=== PATIENT | male | born 1990 | race Caucasian/White ===

== ENCOUNTER → 2016-06-24 | Outpatient (CLI) | payer MEDICARE ==
--- NOTE | 2016-06-24 22:05 | MR ---
EXAMINATION TYPE: MR lumbar spine wo con DATE OF EXAM: 06/24/2016 10:20 AM COMPARISON: NONE HISTORY: LBP, BLE radic x 1 year, no trauma CONTRAST: 0 mL intravenous MultiHance. TECHNIQUE: Multiplanar, multisequence images of the lumbar spine were acquired. FINDINGS: Disc heights are preserved. Disc hydration levels are normal. No significant disc bulge is evident. N o focal disc herniations are evident. No spinal canal stenosis or neural foraminal stenosis is presen t within the lumbar spine. Cord terminates at a normal T12-L1 level. Facets appear within normal limi ts. IMPRESSION: 1. Normal MRI lumbar spine
== END ==
LOC: RADMRIMAIN 08:54
PROVIDERS: ATTEND Anesthesiology Pain Medicine
DX: M54.16 Radiculopathy, lumbar region (principal)
CPT/HCPCS: 72148

== ENCOUNTER 2016-06-28 20:58 | Emergency (ER) | payer MEDICARE ==
[2016-06-28] MEDS ORDERED: DIPH,PERTUS(ACELL)TETVAC-LF 0.5 ML VIAL IM ONE (22:11)
--- NOTE | 2016-06-28 22:48 | ED ---
Wound/Laceration HPI - General Chief Complaint: Wound/Laceration Stated Complaint: rt hand lac Time Seen by Provider: 06/28/16 21:55 Source: patient, RN notes reviewed, old records reviewed Mode of arrival: ambulatory Limitations: no limitations - History of Present Illness Initial Comments: Patient is a 25-year-old male with chief complaint of a right hand laceration. Patient reports that he was taking down a fence and his hand hit the fence pole. He states that it was old and rested. Patient continues to lacerations over the right hand between his first and second digit. Patient denies any decreased range of motion. Denies any bony tenderness. Patient states that he is not up-to-date on his tetanus vaccination. - Related Data Home Medications Medication Instructions Recorded Confirmed Cyclobenzaprine [Flexeril] 10 mg PO TID PRN 06/28/16 06/28/16 Previous Rx's Medication Instructions Recorded Cephalexin [Keflex] 500 mg PO Q8HR #21 cap 06/28/16 Allergies Allergy/AdvReac Type Severity Reaction Status Date / Time Penicillins Allergy Unknown Verified 06/28/16 21:50 Sulfa (Sulfonamide Allergy Unknown Verified 06/28/16 21:50 Antibiotics) Review of Systems ROS Statement: Those systems with pertinent positive or pertinent negative responses have been documented in the HPI. ROS Other: All systems not noted in ROS Statement are negative. Past Medical History Past Medical History: No Reported History Additional Past Medical History / Comment(s): scoliosis bipolar History of Any Multi-Drug Resistant Organisms: None Reported Past Surgical History: Appendectomy Past Psychological History: ADD/ADHD, Bipolar Smoking Status: Current every day smoker Past Alcohol Use History: Occasional Past Drug Use History: None Reported General Exam - General Exam Comments Initial Comments: Pleasant 25-year-old male. No distress. Limitations: no limitations General appearance: alert, in no apparent distress Head exam: Present: atraumatic, normocephalic, normal inspection Eye exam: Present: normal appearance, PERRL, EOMI. Absent: scleral icterus, conjunctival injection, periorbital swelling ENT exam: Present: normal exam, mucous membranes moist Neck exam: Present: normal inspection. Absent: tenderness, meningismus, lymphadenopathy Respiratory exam: Present: normal lung sounds bilaterally. Absent: respiratory distress, wheezes, rales, rhonchi, stridor Cardiovascular Exam: Present: regular rate, normal rhythm, normal heart sounds. Absent: systolic murmur, diastolic murmur, rubs, gallop, clicks GI/Abdominal exam: Present: soft, normal bowel sounds. Absent: distended, tenderness, guarding, rebound, rigid Extremities exam: Present: normal inspection, full ROM, normal capillary refill. Absent: tenderness, pedal edema, joint swelling, calf tenderness Right Upper Arm exam: Present: normal inspection, full ROM Elbow exam: Present: normal inspection, full ROM Forearm Wrist exam: Present: normal inspection, full ROM Hand Wrist exam: Absent: normal inspection (2 1cm laceration) Neuro motor exam: Present: wrist extension intact, thumb opposition intact, thumb IP flexion intact, thumb adduction intact, fingers 2-5 abduction intact Back exam: Present: normal inspection Neurological exam: Present: alert, oriented X3, CN II-XII intact Psychiatric exam: Present: normal affect, normal mood Skin exam: Present: warm, dry, intact, normal color. Absent: rash Course Vital Signs 06/28/16 06/28/16 21:40 23:00 Temperature 100.1 F H 98.0 F Pulse Rate 84 78 Respiratory 20 18 Rate Blood Pressure 124/85 111/69 O2 Sat by Pulse 99 99 Oximetry Procedures - Laceration Laceration #1 Site: hand (right ) Size (cm): 2 Description: linear Depth: simple, single layer Anesthetic Used: benzocaine 0.25% Anesthesia Technique: local infiltration Amount (mls): 5 Pre-repair: wound explored, irrigated extensively Size of Sutures: 5-0 Number of Sutures: 3 Technique: simple, interrupted Patient Tolerated Procedure: well, no complications Medical Decision Making - Medical Decision Making 25-year-old male with chief complaint of laceration to the right hand between the first and second digit. Patient has 2 separate lacerations each measuring 1 cm. Patient given 3 sutures between the 2 lacerations. Patient given an updated tetanus shot. Patient advised to keep the wound clean. He will be started on Keflex as it was a dirty wound. Patient agrees the treatment plan will comply. Return parameters were discussed. Disposition Clinical Impression: Hand laceration Disposition: HOME SELF-CARE Condition: Good Instructions: Laceration (ED), Care For Your Stitches (ED) Additional Instructions: Please return to the emergency room in 5-7 days to have sutures removed. Please leave wound covered for the first 24-48 hours and then leave open to air after that time. Please use clean soap and water to clean the suture area to prevent scabbing over the top of your sutures. Please watch for any signs of infection which may include but not limited to increased pain, swelling, redness, fever or chills. Please return to the emergency room if any signs of infection do occur. Please return to the emergency room for any other concerns or complications. Complete antibiotic prescription. Prescriptions: Cephalexin [Keflex] 500 mg PO Q8HR #21 cap Referrals: Xuan Dietrich MD [Primary Care Provider] - 1-2 days Time of Disposition: 22:45
[2016-06-28 23:01] VITALS: BP 111/69; PULSE 78; RESP 18; TEMP 98
== END 2016-06-28 23:01 | disposition home or self-care (01) ==
LOC: EC 20:58
DX: S61.411A Laceration without foreign body of right hand, initial encounter (principal); F17.200 Nicotine dependence, unspecified, uncomplicated; Z23 Encounter for immunization; Z88.0 Allergy status to penicillin; Z88.2 Allergy status to sulfonamides; W22.09XA Striking against other stationary object, initial encounter
CPT/HCPCS: 12001; 90471; 90715; 99283

== ENCOUNTER 2017-04-22 15:34 | Emergency (ER) | payer MEDICARE, OTHER ==
[2017-04-22 15:41] VITALS: BP 122/74; PULSE 81; RESP 18; TEMP 98.2
--- NOTE | 2017-04-22 15:56 | ED ---
ENT HPI - General Chief complaint: Dental/Oral Stated complaint: Dental Pain Time Seen by Provider: 04/22/17 15:41 Source: patient Mode of arrival: ambulatory Limitations: no limitations - History of Present Illness Initial comments: This is a 26 year old male who presents to the emergency department with a chief complaint of dental pain on the left maxillary region. The pain has been going on for a week. He was evaluated by a dentist, but was unable to afford the procedure to pull the tooth that is causing his pain. He is going to be seen by a dentist on Sunday this week, but is unable to handle the pain anymore. The patient is here for management of his pain. He denies pain surrounding the affected tooth, fevers or chiills. - Related Data Previous Rx's Medication Instructions Recorded Acetaminophen-Codeine 300-30mg 1 tab PO Q4H PRN #20 tablet 04/22/17 [Tylenol #3] Clindamycin HCl 300 mg PO Q6HR #40 cap 04/22/17 Ibuprofen [Motrin] 600 mg PO Q8HR PRN #30 tab 04/22/17 Allergies Allergy/AdvReac Type Severity Reaction Status Date / Time Penicillins Allergy Unknown Verified 04/22/17 15:52 Sulfa (Sulfonamide Allergy Unknown Verified 04/22/17 15:52 Antibiotics) Review of Systems ROS Statement: Those systems with pertinent positive or pertinent negative responses have been documented in the HPI. ROS Other: All systems not noted in ROS Statement are negative. Past Medical History Past Medical History: No Reported History Additional Past Medical History / Comment(s): scoliosis bipolar History of Any Multi-Drug Resistant Organisms: None Reported Past Surgical History: Appendectomy Past Psychological History: ADD/ADHD, Bipolar Smoking Status: Current every day smoker Past Alcohol Use History: Occasional Past Drug Use History: None Reported General Exam Limitations: no limitations Head exam: Present: atraumatic, normocephalic, normal inspection Eye exam: Present: normal appearance, PERRL, EOMI. Absent: scleral icterus, conjunctival injection, periorbital swelling ENT exam: Present: other (The patient has several eroded teeth and dental caries. The 14-16th teeth are fractured and seems to be causing the patient the pain. There is no evidenc of abscess.) Neck exam: Present: normal inspection, full ROM. Absent: tenderness, meningismus, lymphadenopathy Respiratory exam: Present: normal lung sounds bilaterally. Absent: respiratory distress, wheezes, rales, rhonchi, stridor Cardiovascular Exam: Present: regular rate, normal rhythm, normal heart sounds. Absent: systolic murmur, diastolic murmur, rubs, gallop, clicks Course Vital Signs 04/22/17 15:39 Temperature 98.2 F Pulse Rate 81 Respiratory 18 Rate Blood Pressure 122/74 O2 Sat by Pulse 98 Oximetry Medical Decision Making - Medical Decision Making The 26 year old patient presented to the ED with dental pain. Physical exam revealed several eroded teeth with 14-16 revealing fractures. The patient was diagnosed clinically with dental pain, dental caries and dental fractures. The findings were discussed with the patient. He was instructed to follow-up with a dentist for further evaluation and management. He may take Motrin as needed for the pain. Disposition Clinical Impression: Toothache, Pain due to dental caries, Dental caries, Fractured tooth Disposition: HOME SELF-CARE Condition: Stable Instructions: Dental Caries (ED), Toothache (ED) Additional Instructions: Please return to the emergency department if experiencing new or worsening symptoms. Prescriptions: Acetaminophen-Codeine 300-30mg [Tylenol #3] 1 tab PO Q4H PRN #20 tablet PRN Reason: pain Clindamycin HCl 300 mg PO Q6HR #40 cap Ibuprofen [Motrin] 600 mg PO Q8HR PRN #30 tab PRN Reason: Pain Referrals: Xuan Dietrich MD [Primary Care Provider] - 1-2 days Time of Disposition: 15:57
== END 2017-04-22 16:16 | disposition home or self-care (01) ==
LOC: EC 15:34
DX: S02.5XXA Fracture of tooth (traumatic), initial encounter for closed fracture (principal); K02.9 Dental caries, unspecified; F17.200 Nicotine dependence, unspecified, uncomplicated; Z88.0 Allergy status to penicillin; Z88.2 Allergy status to sulfonamides
CPT/HCPCS: 99282

== ENCOUNTER 2017-08-15 19:30 | Emergency (ER) | payer MEDICARE, OTHER ==
[2017-08-15 19:58] VITALS: RESP 18
[2017-08-15] MEDS ORDERED: PROPARACAINE 0.5% OPHTH DROPS 15 ML BTL LEFT EYE STA (20:13)
--- NOTE | 2017-08-15 20:15 | ED ---
General Adult HPI - General Chief complaint: Eye Problems Stated complaint: FB left eye Time Seen by Provider: 08/15/17 20:06 Source: patient, RN notes reviewed Mode of arrival: ambulatory Limitations: no limitations - History of Present Illness Initial comments: 26-year-old male presents to the emergency department for a chief complaint of left eye irritation. Patient was working with hay when he felt like he got something in his eye. Patient flushed his eye thoroughly at home. He tried to use a Kleenex to wipe out any thing that's in his eye. Patient states the pain is still there. Patient states things seem blurry because his eye is watering. Patient denies pain with movement of the eye. Patient denies pain behind the eye. Patient denies any other visual changes.Patient has no other complaints at this time including shortness of breath, chest pain, abdominal pain, nausea or vomiting, headache. - Related Data Previous Rx's Medication Instructions Recorded Acetaminophen-Codeine 300-30mg 1 tab PO Q4H PRN #20 tablet 04/22/17 [Tylenol #3] Clindamycin HCl 300 mg PO Q6HR #40 cap 04/22/17 Ibuprofen [Motrin] 600 mg PO Q8HR PRN #30 tab 04/22/17 Erythromycin Ophth Oint [Romycin 1 applic LEFT EYE QID 5 Days gm 08/15/17 Ophth Oint] Allergies Allergy/AdvReac Type Severity Reaction Status Date / Time Penicillins Allergy Unknown Verified 04/22/17 15:52 Sulfa (Sulfonamide Allergy Unknown Verified 04/22/17 15:52 Antibiotics) Review of Systems ROS Statement: Those systems with pertinent positive or pertinent negative responses have been documented in the HPI. ROS Other: All systems not noted in ROS Statement are negative. Past Medical History Past Medical History: No Reported History Additional Past Medical History / Comment(s): scoliosis bipolar History of Any Multi-Drug Resistant Organisms: None Reported Past Surgical History: Appendectomy Past Psychological History: ADD/ADHD, Bipolar Smoking Status: Current every day smoker Past Alcohol Use History: Occasional Past Drug Use History: None Reported General Exam Limitations: no limitations General appearance: alert, in no apparent distress Head exam: Present: atraumatic, normocephalic, normal inspection Eye exam: Present: PERRL, EOMI, conjunctival injection (slight erythema of the left eye. serous drainage.). Absent: scleral icterus, nystagmus, periorbital swelling, periorbital tenderness Pupils: Present: normal accommodation, other (Wood's lamp and fluorescein stain show corneal abrasions at 2:00 and 10:00 in the left eye. Negative siedel sign. Both lids were flipped and no foreign bodies in the left eye) ENT exam: Present: normal exam, normal oropharynx, mucous membranes moist, TM's normal bilaterally, normal external ear exam Respiratory exam: Present: normal lung sounds bilaterally. Absent: respiratory distress, wheezes, rales, rhonchi, stridor Cardiovascular Exam: Present: regular rate, normal rhythm, normal heart sounds. Absent: systolic murmur, diastolic murmur, rubs, gallop, clicks Course Vital Signs 08/15/17 19:56 Temperature 97.2 F L Pulse Rate 69 Respiratory 18 Rate Blood Pressure 123/65 O2 Sat by Pulse 98 Oximetry Medical Decision Making - Medical Decision Making 26-year-old male says to the emergency department for chief complaint of corneal abrasion earlier today. Patient thinks he got pain in his eye and then used a Kleenex to get it out and thinks he scratched it. Patient does have somewhat decreased visual acuity in the left eye but states it is blurry because his eye is watering. Patient denies any other visual changes or loss of vision. On exam, no foreign bodies found in the eye. Eye was numbed with proparacaine. Wood's lamp and fluorescein stain was used which demonstrated corneal abrasions at about 2:00 and 10:00 in the left eye. Negative Shar sign. Proparacaine immediately helped his eye to feel better. Patient was given erythromycin ointment. He will use that for 5 days. He will return if he has any worsening symptoms or changes in vision. He will follow up with primary care in 1-2 days. He was also given the number to ophthalmology if needed. Disposition Clinical Impression: Corneal abrasion, left Disposition: HOME SELF-CARE Condition: Good Instructions: Corneal Abrasion (ED) Additional Instructions: Please use antibiotic ointment as directed in the left eye. Please return to the emergency department if you have any worsening symptoms including pain or visual changes. Follow-up with primary care in 1-2 days. If you need to, you can follow up with ophthalmology as well. Prescriptions: Erythromycin Ophth Oint [Romycin Ophth Oint] 1 applic LEFT EYE QID 5 Days gm Is patient prescribed a controlled substance at d/c from ED?: No Referrals: Xuan Dietrich MD [Primary Care Provider] - 1-2 days Tod Radford MD [STAFF PHYSICIAN] - 1-2 days Time of Disposition: 21:02
[2017-08-15 21:29] VITALS: BP 116/52; PULSE 74; TEMP 97.8
== END 2017-08-15 21:28 | disposition home or self-care (01) ==
LOC: EC 19:30
DX: S05.02XA Injury of conjunctiva and corneal abrasion without foreign body, left eye, initial encounter (principal); F17.200 Nicotine dependence, unspecified, uncomplicated; Z88.0 Allergy status to penicillin; Z88.2 Allergy status to sulfonamides; X58.XXXA Exposure to other specified factors, initial encounter
CPT/HCPCS: 99283

== ENCOUNTER 2018-10-15 22:48 | Emergency (ER) | payer MEDICARE, OTHER ==
[2018-10-15 22:57] VITALS: BP 125/76; PULSE 81; RESP 16; TEMP 98.1
[2018-10-15] MEDS ORDERED: KETOROLAC 60 MG/2 ML VIAL IM STA (23:16)
--- NOTE | 2018-10-15 23:21 | ED ---
ENT HPI - General Chief complaint: Dental/Oral Stated complaint: Dental Pain Time Seen by Provider: 10/15/18 22:59 Source: patient Mode of arrival: ambulatory Limitations: no limitations - History of Present Illness Initial comments: Patient is a 27-year-old male presenting to the emergency Department with complaints of dental pain 3 days. Patient states he has a fracture of his tooth on the lower left side and he knows he needs to be removed however he lost his dental insurance 2 months ago. Patient states his pain has been on and off for the last couple months but last 3 days has increased. Patient states he has pain with chewing. Patient denies any fever, chills. Patient has no other pertinent past medical history. No other complaints at this time. - Related Data Previous Rx's Medication Instructions Recorded Acetaminophen-Codeine 300-30mg 1 tab PO Q4H PRN #20 tablet 04/22/17 [Tylenol #3] Clindamycin HCl 300 mg PO Q6HR #40 cap 04/22/17 Ibuprofen [Motrin] 600 mg PO Q8HR PRN #30 tab 04/22/17 Erythromycin Ophth Oint [Romycin 1 applic LEFT EYE QID 5 Days gm 08/15/17 Ophth Oint] Clindamycin HCl 300 mg PO Q8H 7 Days #28 cap 10/15/18 Ketorolac [Toradol] 10 mg PO Q8HR #10 tab 10/15/18 Allergies Allergy/AdvReac Type Severity Reaction Status Date / Time Penicillins Allergy Unknown Verified 10/15/18 22:57 Sulfa (Sulfonamide Allergy Unknown Verified 10/15/18 22:57 Antibiotics) Review of Systems ROS Statement: Those systems with pertinent positive or pertinent negative responses have been documented in the HPI. ROS Other: All systems not noted in ROS Statement are negative. Past Medical History Past Medical History: No Reported History Additional Past Medical History / Comment(s): scoliosis bipolar History of Any Multi-Drug Resistant Organisms: None Reported Past Surgical History: Appendectomy Past Psychological History: ADD/ADHD, Bipolar Smoking Status: Current every day smoker Past Alcohol Use History: Occasional Past Drug Use History: None Reported General Exam - General Exam Comments Initial Comments: GENERAL: Well-appearing, well-nourished and in no acute distress. HEAD: Atraumatic, normocephalic. EYES: Pupils equal round and reactive to light, extraocular movements intact, sclera anicteric, conjunctiva are normal. ENT: TMs normal, nares patent, oropharynx clear without exudates. Moist mucous membranes. Patient has multiple tooth decay days. Patient has pain with palpation on tooth #18. There is no signs of abscess on the gumlines. NECK: Normal range of motion, supple without lymphadenopathy or JVD. LUNGS: Breath sounds clear to auscultation bilaterally and equal. No wheezes rales or rhonchi. HEART: Regular rate and rhythm without murmurs, rubs or gallops. ABDOMEN: Soft, nontender, normoactive bowel sounds. No guarding, no rebound. No masses appreciated. : Deferred EXTREMITIES: Normal range of motion, no pitting or edema. No clubbing or cyanosis. NEUROLOGICAL: Cranial nerves II through XII grossly intact. Normal speech, normal gait. PSYCH: Normal mood, normal affect. SKIN: Warm, Dry, normal turgor, no rashes or lesions noted. Limitations: no limitations Course Vital Signs 10/15/18 22:54 Temperature 98.1 F Pulse Rate 81 Respiratory 16 Rate Blood Pressure 125/76 O2 Sat by Pulse 99 Oximetry Medical Decision Making - Medical Decision Making Patient is a 27-year-old male presenting with dental pain 3 days. Patient has multiple tooth decay's. Patient has pain with palpation of tooth #18 in the lower left side. Patient states he is supposed to have a tooth pulled recently lost dental insurance. On exam there are no signs of an abscess. Patient will be started on clindamycin. Patient will also be given Toradol for pain relief. Patient will follow up with dentist YARED. Patient is stable for discharge. Patient is in agreement with this plan of care. Return parameters were discussed with the patient he verbalizes understanding. Case discussed with Dr. Harmon. Disposition Clinical Impression: Dental caries, Toothache, Dental abscess Disposition: HOME SELF-CARE Condition: Stable Instructions (If sedation given, give patient instructions): Dental Caries (ED), Toothache (ED) Additional Instructions: Please return to the Emergency Department if symptoms worsen or any other concerns. Follow-up with dentist for further management. Prescriptions: Clindamycin HCl 300 mg PO Q8H 7 Days #28 cap Ketorolac [Toradol] 10 mg PO Q8HR #10 tab Is patient prescribed a controlled substance at d/c from ED?: No Referrals: Petr Dietrich MD [Primary Care Provider] - 1-2 days
== END 2018-10-15 23:35 | disposition home or self-care (01) ==
LOC: EC 22:48
DX: K04.7 Periapical abscess without sinus (principal); K02.9 Dental caries, unspecified; Z88.0 Allergy status to penicillin; Z88.2 Allergy status to sulfonamides; F17.200 Nicotine dependence, unspecified, uncomplicated
CPT/HCPCS: 99282; 96372; J1885

== ENCOUNTER 2021-01-10 10:00 | Emergency (ER) | payer MEDICARE ==
[2021-01-10 11:03] VITALS: BP 122/70; PULSE 82; RESP 18; TEMP 98.2
--- NOTE | 2021-01-10 12:40 | ED ---
URI HPI - General Chief Complaint: Upper Respiratory Infection Stated Complaint: congestion Time Seen by Provider: 01/10/21 11:30 Source: patient, family Mode of arrival: ambulatory Limitations: no limitations - History of Present Illness Initial Comments: Patient is a 30-year-old male presenting to the emergency Department with complaints of sinus congestion, pressure over the past 1-2 weeks. He denies any fevers or chills, some mild ear pain and pressure. He is having a lot of sinus drainage with color changes. He denies any chest pain or shortness of breath, only mild cough in the morning, some postnasal drainage. Denies any abdominal pain, no nausea or vomiting. He has no further complaints at this time. Denies any recent sick exposures. His vital signs are stable upon arrival. - Related Data Previous Rx's Medication Instructions Recorded Acetaminophen-Codeine 300-30mg 1 tab PO Q4H PRN #20 tablet 04/22/17 [Tylenol #3] Clindamycin HCl 300 mg PO Q6HR #40 cap 04/22/17 Ibuprofen [Motrin] 600 mg PO Q8HR PRN #30 tab 04/22/17 Erythromycin Ophth Oint [Romycin 1 applic LEFT EYE QID 5 Days gm 08/15/17 Ophth Oint] Clindamycin HCl 300 mg PO Q8H 7 Days #28 cap 10/15/18 Ketorolac [Toradol] 10 mg PO Q8HR #10 tab 10/15/18 Doxycycline Monohydrate [Monodox] 100 mg PO BID 7 Days #14 cap 01/10/21 Allergies Allergy/AdvReac Type Severity Reaction Status Date / Time Penicillins Allergy Unknown Verified 01/10/21 11:02 Sulfa (Sulfonamide Allergy Unknown Verified 01/10/21 11:02 Antibiotics) Review of Systems ROS Statement: Those systems with pertinent positive or pertinent negative responses have been documented in the HPI. ROS Other: All systems not noted in ROS Statement are negative. Past Medical History Past Medical History: No Reported History Additional Past Medical History / Comment(s): scoliosis bipolar History of Any Multi-Drug Resistant Organisms: None Reported Past Surgical History: Appendectomy Past Psychological History: ADD/ADHD, Bipolar Smoking Status: Current every day smoker Past Alcohol Use History: Occasional Past Drug Use History: None Reported General Exam - General Exam Comments Initial Comments: GENERAL: Patient is well-developed and well-nourished. Patient is nontoxic and in no acute distress. HEAD: Atraumatic, normocephalic. EYES: Pupils equal round and reactive to light, extraocular movements intact, sclera anicteric, conjunctiva are normal. Eyelids were unremarkable. ENT: TMs normal, nares patent, oropharynx clear without exudates. Moist mucous membranes. Positive bilateral frontal sinus and pain with palpation. NECK: Normal range of motion, supple without lymphadenopathy or JVD. LUNGS: Unlabored respirations. Breath sounds clear to auscultation bilaterally and equal. No wheezes rales or rhonchi. HEART: Regular rate and rhythm without murmurs, rubs or gallops. ABDOMEN: Soft, nontender, normoactive bowel sounds. No guarding, no rebound. No masses appreciated. MUSCULOSKELETAL: Normal extremities with adequate strength and normal range of motion, no pitting or edema. No clubbing or cyanosis. NEUROLOGICAL: Patient is alert and oriented x 3. SKIN: Warm, Dry, normal turgor, no rashes or lesions noted. Limitations: no limitations Course Vital Signs 01/10/21 11:00 Temperature 98.2 F Pulse Rate 82 Respiratory 18 Rate Blood Pressure 122/70 O2 Sat by Pulse 98 Oximetry Medical Decision Making - Medical Decision Making Patient is a 30-year-old male here with sinus pain and congestion for the past 1-2 weeks. Been trying [id number] medications without improvement. His vitals are stable exam showing findings consistent with sinusitis. The test is negative. I will prescribe him doxycycline for sinus infection. He is agreeable with this plan he is stable for discharge. - Lab Data Lab Results 01/10/21 Range/Units 11:18 Coronavirus (PCR) Not Detected (Not Detectd) Disposition Clinical Impression: Acute sinus infection, Sinusitis Disposition: HOME SELF-CARE Condition: Stable Instructions (If sedation given, give patient instructions): Sinusitis (ED) Additional Instructions: Please return to the Emergency Department if symptoms worsen or any other concerns. Take antibiotics as prescribed. May take Tylenol Motrin for any discomfort. Follow-up with your family doctor. Prescriptions: Doxycycline Monohydrate [Monodox] 100 mg PO BID 7 Days #14 cap Is patient prescribed a controlled substance at d/c from ED?: No Referrals: Xuan Dietrich MD [Primary Care Provider] - 1-2 days Time of Disposition: 12:40
== END 2021-01-10 12:46 | disposition home or self-care (01) ==
LOC: EC 10:00
DX: J01.90 Acute sinusitis, unspecified (principal); F31.9 Bipolar disorder, unspecified; M41.9 Scoliosis, unspecified; F90.9 Attention-deficit hyperactivity disorder, unspecified type; F17.200 Nicotine dependence, unspecified, uncomplicated; Z72.89 Other problems related to lifestyle
CPT/HCPCS: 87635; 99283

== ENCOUNTER 2021-12-25 23:00 | Emergency (ER) | payer MEDICARE, OTHER ==
[2021-12-25] MEDS ORDERED: SODIUM CHLORIDE 0.9% 1,000 ML IV STA (23:07)
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
[2021-12-25 23:37] LABS: Basophils # (A) 0.1 k/uL (0-0.2); Basophils % (A) 1 %; Eosinophils # (A) 0.1 k/uL (0-0.7); Eosinophils % (A) 1 %; HCT 45.1 % (39.0-53.0); HGB 15.6 gm/dL (13.0-17.5); Lymphocytes # (A) 2.9 k/uL (1.0-4.8); Lymphocytes % (A) 28 %; MCH 29.9 pg (25.0-35.0); MCHC 34.7 g/dL (31.0-37.0); Mean Platelet Volume 8.8; Monocytes # (A) 0.5 k/uL (0-1.0); Monocytes % (A) 5 %; Neutrophils # (A) 6.5 k/uL (1.3-7.7); Neutrophils % (A) 63 %; Platelet Count 169 k/uL (150-450); RBC 5.24 m/uL (4.30-5.90); RDW 13.6 % (11.5-15.5); WBC 10.2 k/uL (3.8-10.6)
[2021-12-25 23:45] LABS: Partial Thromboplastin Time 24.7 sec (22.0-30.0)
[2021-12-25 23:48] LABS: ALT 19 U/L (4-49); AST 28 U/L (17-59); African American GFR (CKD) >90 (>60 ml/min/1.73 sqM); Albumin 4.9 g/dL (3.5-5.0); Alcohol <10 mg/dL; Alkaline Phosphatase 51 U/L (38-126); Anion Gap 12 mmol/L; Blood Urea Nitrogen 23 mg/dL (9-20); Calcium 9.4 mg/dL (8.4-10.2); Carbon Dioxide 27 mmol/L (22-30); Chloride 100 mmol/L (98-107); Glucose 92 mg/dL (74-99); Non-African American GFR(CKD) >90 (>60 ml/min/1.73 sqM); Sodium 139 mmol/L (137-145); Total Bilirubin 0.4 mg/dL (0.2-1.3); Total Protein 6.9 g/dL (6.3-8.2)
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
[2021-12-26 00:26] LABS: Amphetamine Screen,Urine Not Detected (NotDetected); Barbiturate Screen,Urine Not Detected (NotDetected); Benzodiazepines Screen,Urine Not Detected (NotDetected); Cocaine Screen,Urine Not Detected (NotDetected); Methadone Screen, Urine Not Detected (NotDetected); Opiate Screen,Urine Not Detected (NotDetected); Oxycodone Screen, Urine Not Detected (NotDetected); Phencyclidine Screen,Urine Not Detected (NotDetected); Tricyclic Antidepressant,Urine Not Detected (NotDetected); Urn Cannabinoid Scrn Not Detected (NotDetected)
[2021-12-26] MEDS ORDERED: MORPHINE SULFATE 4 MG/ML SYRINGE IVP STA (00:36)
[2021-12-26] MEDS ORDERED: KETOROLAC 15 MG/ML 1 ML VIAL IVP STA (00:36)
[2021-12-26] MEDS ORDERED: IBUPROFEN 600 MG STARTER PACK 4 TAB BTL PO STA (00:57)
[2021-12-26] MEDS ORDERED: traMADol 50 MG STARTER PACK 3 TAB BTL PO STA (00:57)
[2021-12-26 01:14] VITALS: BP 110/78; PULSE 70; RESP 16; TEMP 98
== END 2021-12-26 01:07 | disposition home or self-care (01) ==
LOC: EC 23:00
DX: S92.401A Displaced unspecified fracture of right great toe, initial encounter for closed fracture (principal); S00.03XA Contusion of scalp, initial encounter; F17.200 Nicotine dependence, unspecified, uncomplicated; F90.9 Attention-deficit hyperactivity disorder, unspecified type; Z88.0 Allergy status to penicillin; Z88.2 Allergy status to sulfonamides; V86.56XA Driver of dirt bike or motor/cross bike injured in nontraffic accident, initial encounter
CPT/HCPCS: 36415; 93005; 86900; 86901; 80053; 84484; 85025; 85610; 85730; 86850; 80306; 72170; 73630; 71045; 99284; 96374; 96375; 96361; G0480; J1885; 80320

== ENCOUNTER 2021-12-28 10:32 | Emergency (ER) | payer MEDICARE, OTHER ==
[2021-12-28 10:36] VITALS: BP 114/77; PULSE 76; RESP 16; TEMP 98
[2021-12-28] MEDS ORDERED: IBUPROFEN 800 MG TAB PO STA (10:47)
[2021-12-28] MEDS ORDERED: traMADol 50 MG TAB PO STA (10:47)
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
[2021-12-28] MEDS ORDERED: IBUPROFEN 600 MG STARTER PACK 4 TAB BTL PO STA (10:59)
[2021-12-28] MEDS ORDERED: traMADol 50 MG STARTER PACK 3 TAB BTL PO STA (10:59)
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
== END 2021-12-28 12:01 | disposition home or self-care (01) ==
LOC: EC 10:32
DX: M25.562 Pain in left knee (principal); F17.200 Nicotine dependence, unspecified, uncomplicated; Z88.0 Allergy status to penicillin; Z88.6 Allergy status to analgesic agent
CPT/HCPCS: 99283

== ENCOUNTER 2022-03-27 21:49 | Emergency (ER) | payer MEDICARE, OTHER ==
[2022-03-27 22:17] VITALS: BP 122/72; PULSE 79; RESP 16; TEMP 97.8
[2022-03-27] MEDS ORDERED: valACYclovir HCL 1,000 MG TABLET PO STA (22:21)
--- NOTE | 2022-03-27 22:22 | ED ---
General Adult HPI - General Stated complaint: Allergic Reaction, Blisters in mouth Time Seen by Provider: 03/27/22 22:22 Source: patient, RN notes reviewed Mode of arrival: ambulatory Limitations: no limitations - History of Present Illness Initial comments: 31-year-old male presents emergency Department chief complaint of sores in his mouth. Patient states he had recent multiple teeth extraction upper and lower. Patient states he started clindamycin but states the sores that are painful started prior to that. Patient denies any difficulty swallowing. He states he's had cultures the past he states his physical the medical floor. Patient offers no other complaints. Denies fevers denies chills. - Related Data Previous Rx's Medication Instructions Recorded Acetaminophen-Codeine 300-30mg 1 tab PO Q4H PRN #20 tablet 04/22/17 [Tylenol #3] Ibuprofen [Motrin] 600 mg PO Q8HR PRN #30 tab 04/22/17 clindamycin HCL [Clindamycin HCl] 300 mg PO Q6HR #40 cap 04/22/17 Erythromycin Ophth Oint [Romycin 1 applic LEFT EYE QID 5 Days gm 08/15/17 Ophth Oint] Ketorolac [Toradol] 10 mg PO Q8HR #10 tab 10/15/18 clindamycin HCL [Clindamycin HCl] 300 mg PO Q8H 7 Days #28 cap 10/15/18 Doxycycline Monohydrate [Monodox] 100 mg PO BID 7 Days #14 cap 01/10/21 Doxycycline Hyclate 100 mg PO BID 7 Days #14 tab 12/28/21 Ibuprofen 800 mg PO Q8H PRN #20 tab 12/28/21 valACYclovir HCL [Valtrex] 1,000 mg PO DAILY #7 tablet 03/27/22 Allergies Allergy/AdvReac Type Severity Reaction Status Date / Time Penicillins Allergy Unknown Verified 03/27/22 22:11 Sulfa (Sulfonamide Allergy Unknown Verified 03/27/22 22:11 Antibiotics) Review of Systems ROS Statement: Those systems with pertinent positive or pertinent negative responses have been documented in the HPI. ROS Other: All systems not noted in ROS Statement are negative. Past Medical History Past Medical History: No Reported History Additional Past Medical History / Comment(s): scoliosis bipolar History of Any Multi-Drug Resistant Organisms: None Reported Past Surgical History: Appendectomy Past Psychological History: ADD/ADHD, Bipolar, PTSD Smoking Status: Current every day smoker Past Alcohol Use History: Occasional Past Drug Use History: None Reported General Exam General appearance: alert, in no apparent distress Head exam: Present: atraumatic, normocephalic, normal inspection Eye exam: Present: normal appearance, PERRL, EOMI. Absent: scleral icterus, conjunctival injection, periorbital swelling ENT exam: Present: mucous membranes moist. Absent: normal exam, normal oropharynx (Recent dental extraction with sutures in place no active bleeding there is vesicular erythematous sores on it lip, inner mucosa) Neck exam: Present: normal inspection, full ROM. Absent: tenderness, meningismus, lymphadenopathy Respiratory exam: Present: normal lung sounds bilaterally. Absent: respiratory distress, wheezes, rales, rhonchi, stridor Cardiovascular Exam: Present: regular rate, normal rhythm, normal heart sounds. Absent: systolic murmur, diastolic murmur, rubs, gallop, clicks Course Vital Signs 03/27/22 22:11 Temperature 97.8 F Pulse Rate 79 Respiratory 16 Rate Blood Pressure 122/72 O2 Sat by Pulse 96 Oximetry Medical Decision Making - Medical Decision Making Was pt. sent in by a medical professional or institution (, PA, PROCESS CONTROL TECHNICIAN, urgent care, hospital, or skilled nursing...) When possible be specific @ -No Did you speak to anyone other than the patient for history (EMS, parent, family, police, friend...)? What history was obtained from this source @ -No Did you review nursing and triage notes (agree or disagree)? Why? @ -I reviewed and agree with nursing and triage notes Were old charts reviewed (outside hosp., previous admission, EMS record, old EKG, old radiological studies, urgent care reports/EKG's, skilled nursing records)? Report findings @ -No old charts were reviewed Differential Diagnosis (chest pain, altered mental status, abdominal pain women, abdominal pain men, vaginal bleeding, weakness, fever, dyspnea, syncope, headache, dizziness, GI bleed, back pain, seizure, CVA, palpatations, mental health)? @ -ALLERGIC reaction, herpes simplex, gingivostomatitis, this list is not all- inclusive EKG interpreted by me (3pts min.). @ -None X-rays interpreted by me (1pt min.). @ -None done CT interpreted by me (1pt min.). @ -None done U/S interpreted by me (1pt. min.). @ -None done What testing was considered but not performed or refused? (CT, X-rays, U/S, labs)? Why? @ -None What meds were considered but not given or refused? Why? @ -None Did you discuss the management of the patient with other professionals (professionals i.e. DrReilly, PA, PROCESS CONTROL TECHNICIAN, lab, RT, psych nurse, adoption social worker, occupational health professional, teacher, real estate utilization officer, mental health case manager)? Give summary @ -No Was smoking cessation discussed for >3mins.? @ -No Was critical care preformed (if so, how long)? @ -No Were there social determinants of health that impacted care today? How? (Homelessness, low income, unemployed, alcoholism, drug addiction, transportation, low edu. Level, literacy, decrease access to med. care, snf, rehab)? @ -No Was there de-escalation of care discussed even if they declined (Discuss DNR or withdrawal of care, Hospice)? DNR status @ -No What co-morbidities impacted this encounter? (DM, HTN, Smoking, COPD, CAD, Cancer, CVA, ARF, Chemo, Hep., AIDS, mental health diagnosis, sleep apnea, morbid obesity)? @ -None Was patient admitted / discharged? Hospital course, mention meds given and route, prescriptions, significant lab abnormalities, going to OR and other pertinent info. @ -Discharge patient has evidence of herpes simplex may be exacerbated by recent dental procedure patient was started on Valtrex return parameters were discussed. Undiagnosed new problem with uncertain prognosis? @ -No Drug Therapy requiring intensive monitoring for toxicity (Heparin, Nitro, Insulin, Cardizem)? @ -No Were any procedures done? @ -No Diagnosis/symptom? @ -[Herpes simplex oral Acute, or Chronic, or Acute on Chronic? @ -acute Uncomplicated (without systemic symptoms) or Complicated (systemic symptoms)? @ -Uncomplicated Side effects of treatment? @ -No Exacerbation, Progression, or Severe Exacerbation? @ -No Poses a threat to life or bodily function? How? (Chest pain, [place], [place], pneumonia, PE, COPD, DKA, ARF, appy, cholecystitis, CVA, Diverticulitis, Homicidal, Suicidal, threat to staff... and all critical care pts) @ -No Disposition Clinical Impression: Oral herpes simplex infection Disposition: HOME SELF-CARE Condition: Stable Instructions (If sedation given, give patient instructions): Oral Herpes Simplex Virus Infections (ED) Additional Instructions: Please return to the Emergency Department if symptoms worsen or any other concerns. Prescriptions: valACYclovir HCL [Valtrex] 1,000 mg PO DAILY #7 tablet Is patient prescribed a controlled substance at d/c from ED?: No Referrals: Xuan Dietrich MD [Primary Care Provider] - 1-2 days Time of Disposition: 22:22
== END 2022-03-27 22:50 | disposition home or self-care (01) ==
LOC: EC 21:49
DX: B00.9 Herpesviral infection, unspecified (principal); F17.200 Nicotine dependence, unspecified, uncomplicated; Z88.2 Allergy status to sulfonamides; Z88.0 Allergy status to penicillin; Z90.89 Acquired absence of other organs
CPT/HCPCS: 99282

== ENCOUNTER 2023-01-14 18:19 | Emergency (ER) | payer MEDICARE, OTHER ==
[2023-01-14 18:36] VITALS: BP 122/75; PULSE 79; RESP 18; TEMP 98.6
--- NOTE | 2023-01-14 19:10 | XR ---
EXAMINATION TYPE: XR hand complete LT DATE OF EXAM: 01/14/2023 7:01 PM CLINICAL INDICATION:Male, 32 years old with history of left hand pain; H COMPARISON: None TECHNIQUE: XR hand complete LT Frontal, lateral and oblique views were obtained. FINDINGS: Normal alignment of the visualized joints. No acute osseous pathology is identified. No e vidence of soft tissue swelling. IMPRESSION: No acute osseous pathology.
--- NOTE | 2023-01-14 19:16 | ED ---
General Adult HPI - General Chief complaint: Skin/Abscess/Foreign Body Stated complaint: Left finger swelling Time Seen by Provider: 01/14/23 18:31 Source: patient, RN notes reviewed Mode of arrival: ambulatory Limitations: no limitations - History of Present Illness Initial comments: 32-year-old male with no significant past medical history presents the emergency department with chief complaint of left finger problem. Patient reports that he is numbness left third digit. He denies any known injury or trauma. It is not painful. He does notice that it got bigger within 1 day's time. Denies any redness, swelling, discharge, bleeding from the site. Denies history of diabetes. He does report that he wakes up with hands quite often. - Related Data Previous Rx's Medication Instructions Recorded Acetaminophen-Codeine 300-30mg 1 tab PO Q4H PRN #20 tablet 04/22/17 [Tylenol #3] Ibuprofen [Motrin] 600 mg PO Q8HR PRN #30 tab 04/22/17 clindamycin HCL [Clindamycin HCl] 300 mg PO Q6HR #40 cap 04/22/17 Erythromycin Ophth Oint [Romycin 1 applic LEFT EYE QID 5 Days gm 08/15/17 Ophth Oint] Ketorolac [Toradol] 10 mg PO Q8HR #10 tab 10/15/18 clindamycin HCL [Clindamycin HCl] 300 mg PO Q8H 7 Days #28 cap 10/15/18 Doxycycline Monohydrate [Monodox] 100 mg PO BID 7 Days #14 cap 01/10/21 Doxycycline Hyclate 100 mg PO BID 7 Days #14 tab 12/28/21 Ibuprofen 800 mg PO Q8H PRN #20 tab 12/28/21 valACYclovir HCL [Valtrex] 1,000 mg PO DAILY #7 tablet 03/27/22 Allergies Allergy/AdvReac Type Severity Reaction Status Date / Time Penicillins Allergy Unknown Verified 01/14/23 18:23 Sulfa (Sulfonamide Allergy Unknown Verified 01/14/23 18:23 Antibiotics) Review of Systems ROS Statement: Those systems with pertinent positive or pertinent negative responses have been documented in the HPI. ROS Other: All systems not noted in ROS Statement are negative. Past Medical History Past Medical History: No Reported History Additional Past Medical History / Comment(s): scoliosis bipolar History of Any Multi-Drug Resistant Organisms: None Reported Past Surgical History: Appendectomy Past Psychological History: ADD/ADHD, Bipolar, PTSD Smoking Status: Current every day smoker Past Alcohol Use History: Occasional Past Drug Use History: None Reported General Exam - General Exam Comments Initial Comments: General: Alert, in no acute distress Head: atraumatic normocephalic. Eyes PERRL, EOMI intact, mucous membranes moist Respiratory: Lungs clear to auscultation bilaterally Cardiovascular: Heart rate regular rate and rhythm Abdominal: Soft without guarding or rebound Extremities: Normal inspection with full range of motion and normal capillary refill, less than a small callus left middle finger Neuroogic: alert and oriented 3, CN II-XII intact, able to ambulate with steady gait Skin: warm dry and intact with normal color Limitations: no limitations Course Vital Signs 01/14/23 01/14/23 18:20 19:39 Temperature 98.6 F Pulse Rate 79 Respiratory 18 18 Rate Blood Pressure 122/75 O2 Sat by Pulse 98 Oximetry Medical Decision Making - Medical Decision Making Was pt. sent in by a medical professional or institution (Dr. PA, MANAGING PARTNER, urgent care, hospital, or penitentiary...) When possible be specific @ -[No] Did you speak to anyone other than the patient for history (EMS, parent, family, police, friend...)? What history was obtained from this source @ -[No] Did you review nursing and triage notes (agree or disagree)? Why? @ -[I reviewed and agree with nursing and triage notes] Were old charts reviewed (outside hosp., previous admission, EMS record, old EKG, old radiological studies, urgent care reports/EKG's, penitentiary records)? Report findings @ -[No old charts were reviewed] Differential Diagnosis (chest pain, altered mental status, abdominal pain women, abdominal pain men, vaginal bleeding, weakness, fever, dyspnea, syncope, headache, dizziness, GI bleed, back pain, seizure, CVA, palpatations, mental health, musculoskeletal)? @ -[not applicable] EKG interpreted by me (3pts min.). @ -[As above] X-rays interpreted by me (1pt min.). @ -Left hand x-ray does not reveal any intraosseous abnormality CT interpreted by me (1pt min.). @ -[None done] U/S interpreted by me (1pt. min.). @ -[None done] What testing was considered but not performed or refused? (CT, X-rays, U/S, labs)? Why? @ -[None] What meds were considered but not given or refused? Why? @ -[None] Did you discuss the management of the patient with other professionals (professionals i.e. , PA, MANAGING PARTNER, lab, RT, psych nurse, geriatric social work professor, manager water, teacher, bsa/aml compliance officer, case management coordinator)? Give summary @ -[No] Was smoking cessation discussed for >3mins.? @ -[No] Was critical care preformed (if so, how long)? @ -[No] Were there social determinants of health that impacted care today? How? (Homelessness, low income, unemployed, alcoholism, drug addiction, transportation, low edu. Level, literacy, decrease access to med. care, detention, rehab)? @ -[No] Was there de-escalation of care discussed even if they declined (Discuss DNR or withdrawal of care, Hospice)? DNR status @ -[No] What co-morbidities impacted this encounter? (DM, HTN, Smoking, COPD, CAD, Cancer, CVA, ARF, Chemo, Hep., AIDS, mental health diagnosis, sleep apnea, morbid obesity)? @ -[None] Was patient admitted / discharged? Hospital course, mention meds given and route, prescriptions, significant lab abnormalities, going to OR and other pertinent info. @ Discharged. This is a 32-year-old male with chief complaint of finger problem. Patient had a history physical exam performed. Left third digit with what appears to be callus. No surrounding erythema, edema, purulent discharge. Patient had x-rays performed which were unremarkable. Return precautions discussed at length. Patient discharged in stable condition. Case discussed with Dr. Valencia, P who agrees with plan of care Undiagnosed new problem with uncertain prognosis? @ -[No] Drug Therapy requiring intensive monitoring for toxicity (Heparin, Nitro, Insulin, Cardizem)? @ -[No] Were any procedures done? @ -[No] Diagnosis/symptom? @ - Finger Problem Acute, or Chronic, or Acute on Chronic? @ -Acute Uncomplicated (without systemic symptoms) or Complicated (systemic symptoms)? @ -Uncomplicated Side effects of treatment? @ -[No] Exacerbation, Progression, or Severe Exacerbation? @ -[No] Poses a threat to life or bodily function? How? (Chest pain, [place], [place], pneumonia, PE, COPD, DKA, ARF, appy, cholecystitis, CVA, Diverticulitis, Homicidal, Suicidal, threat to staff... and all critical care pts) @ -Low likelihood Disposition Clinical Impression: Finger problem Disposition: HOME SELF-CARE Condition: Stable Is patient prescribed a controlled substance at d/c from ED?: No Referrals: Xuan Dietrich MD [Primary Care Provider] - 1-2 days Time of Disposition: 19:17
== END 2023-01-14 19:41 | disposition home or self-care (01) ==
LOC: EC 18:19
DX: L84 Corns and callosities (principal); F17.200 Nicotine dependence, unspecified, uncomplicated; Z88.0 Allergy status to penicillin; Z88.2 Allergy status to sulfonamides
CPT/HCPCS: 99283

== ENCOUNTER 2023-07-15 23:32 | Emergency (ER) | payer MEDICARE, OTHER ==
[2023-07-15 23:45] VITALS: BP 129/77; PULSE 76; RESP 18; TEMP 98
[2023-07-16] MEDS: CLINDAMYCIN 150 MG CAP PO STA (00:11)
[2023-07-16] MEDS: DIPH,PERTUS(ACELL)TETVAC-LF 0.5 ML VIAL IM ONE (00:11)
--- NOTE | 2023-07-16 00:15 | ED ---
General Adult HPI - General Chief complaint: Skin/Abscess/Foreign Body Stated complaint: Animal bite R hand Time Seen by Provider: 07/15/23 23:47 Source: patient, RN notes reviewed, old records reviewed Mode of arrival: ambulatory Limitations: no limitations - History of Present Illness Initial comments: 32-year-old male presenting with cat scratch to the right hand. No known bites. Patient states his tetanus is not up-to-date. This occurred 1 hour prior to arrival. This was a neighborhood cat. - Related Data Previous Rx's Medication Instructions Recorded Acetaminophen-Codeine 300-30mg 1 tab PO Q4H PRN #20 tablet 04/22/17 [Tylenol #3] Ibuprofen [Motrin] 600 mg PO Q8HR PRN #30 tab 04/22/17 clindamycin HCL [Clindamycin HCl] 300 mg PO Q6HR #40 cap 04/22/17 Erythromycin Ophth Oint [Romycin 1 applic LEFT EYE QID 5 Days gm 08/15/17 Ophth Oint] Ketorolac [Toradol] 10 mg PO Q8HR #10 tab 10/15/18 clindamycin HCL [Clindamycin HCl] 300 mg PO Q8H 7 Days #28 cap 10/15/18 Doxycycline Monohydrate [Monodox] 100 mg PO BID 7 Days #14 cap 01/10/21 Doxycycline Hyclate 100 mg PO BID 7 Days #14 tab 12/28/21 Ibuprofen 800 mg PO Q8H PRN #20 tab 12/28/21 valACYclovir HCL [Valtrex] 1,000 mg PO DAILY #7 tablet 03/27/22 Clindamycin [Cleocin] 450 mg PO TID 7 Days #21 cap 07/16/23 Allergies Allergy/AdvReac Type Severity Reaction Status Date / Time Penicillins Allergy Unknown Verified 07/15/23 23:36 Sulfa (Sulfonamide Allergy Unknown Verified 07/15/23 23:36 Antibiotics) Review of Systems ROS Statement: Those systems with pertinent positive or pertinent negative responses have been documented in the HPI. ROS Other: All systems not noted in ROS Statement are negative. Past Medical History Past Medical History: No Reported History Additional Past Medical History / Comment(s): scoliosis bipolar History of Any Multi-Drug Resistant Organisms: None Reported Past Surgical History: Appendectomy Past Psychological History: ADD/ADHD, Bipolar, PTSD Smoking Status: Current every day smoker Past Alcohol Use History: Occasional Past Drug Use History: None Reported General Exam Limitations: no limitations General appearance: alert, in no apparent distress Head exam: Present: atraumatic, normocephalic Eye exam: Present: normal appearance, PERRL ENT exam: Present: normal exam Neck exam: Present: normal inspection. Absent: tenderness, meningismus Respiratory exam: Present: normal lung sounds bilaterally. Absent: respiratory distress, wheezes Cardiovascular Exam: Present: regular rate, normal rhythm GI/Abdominal exam: Present: soft. Absent: distended, tenderness Extremities exam: Present: other (Cat scratches to the dorsal surface of the right hand, no surrounding cellulitis or erythema, I do not see any puncture wounds.) Neurological exam: Present: alert, oriented X3 Psychiatric exam: Present: normal affect, normal mood Course Vital Signs 07/15/23 23:34 Temperature 98 F Pulse Rate 76 Respiratory 18 Rate Blood Pressure 129/77 O2 Sat by Pulse 99 Oximetry Medical Decision Making - Medical Decision Making Was pt. sent in by a medical professional or institution (SONIDO Yoder, JEEPER OPERATOR, urgent care, hospital, or retirement...) When possible be specific @ -No Did you speak to anyone other than the patient for history (EMS, parent, family, police, friend...)? What history was obtained from this source @ -No Did you review nursing and triage notes (agree or disagree)? Why? @ -I reviewed and agree with nursing and triage notes Were old charts reviewed (outside hosp., previous admission, EMS record, old EKG, old radiological studies, urgent care reports/EKG's, retirement records)? Report findings @ -No old charts were reviewed Differential Diagnosis laceration, cat scratch EKG interpreted by me (3pts min.). @ -As above X-rays interpreted by me (1pt min.). @ -None done CT interpreted by me (1pt min.). @ -None done U/S interpreted by me (1pt. min.). @ -None done What testing was considered but not performed or refused? (CT, X-rays, U/S, labs)? Why? @ -None What meds were considered but not given or refused? Why? @ -None Did you discuss the management of the patient with other professionals (professionals i.e. SONIDO Yoder, JEEPER OPERATOR, lab, RT, psych nurse, social economist, team automobile assembler, teacher, patient safety officer, nurse case management)? Give summary @ -No Was smoking cessation discussed for >3mins.? @ -No Was critical care preformed (if so, how long)? @ -No Were there social determinants of health that impacted care today? How? (Homelessness, low income, unemployed, alcoholism, drug addiction, t ransportation, low edu. Level, literacy, decrease access to med. care, group home, rehab)? @ -No Was there de-escalation of care discussed even if they declined (Discuss DNR or withdrawal of care, Hospice)? DNR status @ -No What co-morbidities impacted this encounter? (DM, HTN, Smoking, COPD, CAD, Cancer, CVA, ARF, Chemo, Hep., AIDS, mental health diagnosis, sleep apnea, morbid obesity)? @ -None Was patient admitted / discharged? Hospital course, mention meds given and route, prescriptions, significant lab abnormalities, going to OR and other pertinent info. @Covered with antibiotics and tetanus updated. Patient had cleansed the wound with soap and peroxide prior to arrival. Undiagnosed new problem with uncertain prognosis? @ -No Drug Therapy requiring intensive monitoring for toxicity (Heparin, Nitro, Insulin, Cardizem)? @ -No Were any procedures done? @ -No Diagnosis/symptom? @CAT scratch Acute, or Chronic, or Acute on Chronic? @ -acute Uncomplicated (without systemic symptoms) or Complicated (systemic symptoms)? @ -Default Side effects of treatment? @ -No Exacerbation, Progression, or Severe Exacerbation? @ -No Poses a threat to life or bodily function? How? (Chest pain, [place], [place], pneumonia, PE, COPD, DKA, ARF, appy, cholecystitis, CVA, Diverticulitis, Homicidal, Suicidal, threat to staff... and all critical care pts) @ -No Disposition Clinical Impression: Cat scratch of hand Disposition: HOME SELF-CARE Condition: Good Instructions (If sedation given, give patient instructions): Laceration (ED) Prescriptions: Clindamycin [Cleocin] 450 mg PO TID 7 Days #21 cap Is patient prescribed a controlled substance at d/c from ED?: No Referrals: Xuan Dietrich MD [Primary Care Provider] - 1-2 days Time of Disposition: 00:14
== END 2023-07-16 01:55 | disposition home or self-care (01) ==
LOC: EC 23:32
DX: S60.511A Abrasion of right hand, initial encounter (principal); F17.200 Nicotine dependence, unspecified, uncomplicated; Z88.0 Allergy status to penicillin; Z88.2 Allergy status to sulfonamides; Z23 Encounter for immunization; W55.03XA Scratched by cat, initial encounter
CPT/HCPCS: 90471; 90715; 99283